=== PATIENT | male | born 1995 | race Two or more races ===

== ENCOUNTER 2018-03-13 15:04 | Emergency (ER) | payer BC ==
[~2018-03-13] VITALS: Ht 180.3 cm; Wt 75.5 kg
[2018-03-13 15:12] VITALS: BP 137/74
[2018-03-13] MEDS ORDERED: KEFLEX500 MG PO (16:03)
== END 2018-03-13 16:28 | disposition home or self-care (01) ==
LOC: EME 15:04
DX: L03.211 Cellulitis of face (principal); L02.01 Cutaneous abscess of face
CPT/HCPCS: 99281; 99284

== ENCOUNTER 2018-03-16 | Emergency (ER) | payer BC ==
[~2018-03-16] VITALS: Ht 180.3 cm; Wt 75.7 kg
[~2018-03-16] MED LIST: KEFLEX500 MG PO
[2018-03-16] MEDS ORDERED: MEDROL DOSEPAK4 MG PO (01:57)
[2018-03-16 02:11] VITALS: BP 138/88
== END 2018-03-16 02:12 | disposition home or self-care (01) ==
LOC: EME
DX: L25.9 Unspecified contact dermatitis, unspecified cause (principal)
CPT/HCPCS: 99281; 99284; J7512